=== PATIENT | male | born 1980 | race Caucasian/White ===

== ENCOUNTER 2016-08-28 12:09 | Observation (INO) | payer BC ==
[~2016-08-28] VITALS: Ht 185.4 cm; Wt 76.5 kg
[~2016-08-28 12:09] MED LIST: FENTANYL PF 250 MCG/5ML ONE; MIDAZOLAM 1 MG/ML, 2ML ONE
[2016-08-28] MEDS ORDERED: FLUORESCEIN OPHTHALMIC 1 MG STRIP ONE (12:33)
[2016-08-28] MEDS ORDERED: OXYMETAZOLINE NASAL SPRAY 0.05%, 15ML ONE (12:33)
[2016-08-28] MEDS ORDERED: LIDOCAINE/PF 1%, 30ML ONE (12:34)
[2016-08-28] MEDS ORDERED: BACITRACIN 50,000 UNIT ONE (12:34)
[2016-08-28] MEDS ORDERED: EPINEPHRINE 1 MG/ML, 1ML ONE (12:34)
[2016-08-28] MEDS ORDERED: EPINEPHRINE TOPICAL SOLN 1 MG/ML, 30ML ONE (12:34)
[2016-08-28] MEDS ORDERED: BACITRACIN OINT 500U/GM, 15 GM ONE (12:34)
[2016-08-28 12:49] VITALS: BP 145/89
[2016-08-28] MEDS ORDERED: LIDOCAINE 1%, 2ML ONE (13:02)
[2016-08-28] MEDS ORDERED: TRAZ50TA18 PO (13:18)
[2016-08-28] MEDS ORDERED: MIDAZOLAM 1 MG/ML, 2ML ONE ×2 (13:29→20:07)
[2016-08-28] MEDS ORDERED: FLUO40CA9 PO (13:30)
[2016-08-28] MEDS ORDERED: SUMA50TA4 PO (13:36)
[2016-08-28] MEDS ORDERED: LACTATED RINGERS 1,000 ML IV SCH (13:36)
[2016-08-28] MEDS ORDERED: LIDOCAINE 1%, 2ML SQ PRN (14:00)
[2016-08-28] MEDS ORDERED: ONDANSETRON 2MG/ML, 2ML ONE (14:16)
[2016-08-28] MEDS ORDERED: DEXAMETHASONE 4 MG/ML, 5ML ONE (14:16)
[2016-08-28] MEDS ORDERED: ROCURONIUM 10 MG/ML ONE (14:16)
[2016-08-28] MEDS ORDERED: PROPOFOL 10 MG/ML, 20ML ONE ×2 (14:16)
[2016-08-28] MEDS ORDERED: CEFTRIAXONE 1,000 MG ONE (14:28)
[2016-08-28] MEDS ORDERED: HYDROmorphone 1 MG/ML, 1ML ONE ×2 (14:40→15:43)
[2016-08-28] MEDS ORDERED: FENTANYL PF 250 MCG/5ML ONE (14:50)
[2016-08-28] MEDS ORDERED: ALBUTEROL/IPRATROPIUM 2.5MG/0.5MG, 3 ML NPPB PRN (15:30)
[2016-08-28] MEDS ORDERED: OXYcodone 5 MG/5 ML ORAL.SOL UDC PO PRN (15:30)
[2016-08-28] MEDS ORDERED: MIDAZOLAM 1 MG/ML, 2ML IV PRN (15:30)
[2016-08-28] MEDS ORDERED: NICOTINE 21 MG/24 HR PATCH.TD24 TD ONE (15:30)
[2016-08-28] MEDS ORDERED: METOCLOPRAMIDE 5 MG/ML, 2ML IV PRN (15:30)
[2016-08-28] MEDS ORDERED: ONDANSETRON 2MG/ML, 2ML IVPush PRN ×2 (15:30→22:30)
[2016-08-28] MEDS ORDERED: hydrALAzine 20 MG/ML, 1ML IV PRN (15:30)
[2016-08-28] MEDS ORDERED: PROMETHAZINE 25 MG/ML, 1ML IV PRN (15:30)
[2016-08-28] MEDS ORDERED: MEPERIDINE/PF 25MG/0.5ML IVPush PRN (15:30)
[2016-08-28] MEDS ORDERED: LABETALOL 5MG/ML, 20ML IV PRN (15:30)
[2016-08-28] MEDS ORDERED: ACETAMINOPHEN 325 MG TABLET PO PRN (15:30)
[2016-08-28] MEDS ORDERED: EPINEPHRINE TOPICAL SOLN 1 MG/ML, 30ML TP ONE (17:05)
[2016-08-28] MEDS ORDERED: FENTANYL PF 100 MCG/2ML ONE ×2 (19:33→20:07)
[2016-08-28] MEDS ORDERED: BALANCED SALT OPHTH IRRIG SOLN 18ML ONE (19:33)
[2016-08-28] MEDS ORDERED: HYDROmorphone 2 MG/ML, 1ML ONE (19:47)
[2016-08-28] MEDS: HYDROmorphone 1 MG/ML, 1ML IV PRN ×2 (19:49→20:00)
[2016-08-28] MEDS: FENTANYL PF 100 MCG/2ML IV PRN ×2 (19:55→20:05)
[2016-08-28] MEDS ORDERED: OXYcodone 5 MG/5 ML ORAL.SOL UDC ONE (21:22)
[2016-08-28] MEDS ORDERED: HYDROmorphone 2MG TABLET PO PRN (22:30)
[2016-08-28] MEDS: AMPICILLIN/SULBACTAM 3 GM in SODIUM CHLORIDE 0.9% 100 ML IV SCH (23:57)
[2016-08-28] MEDS: HYDROmorphone 2 MG/ML, 1ML IV PRN (23:57)
[2016-08-28] MEDS: LACTATED RINGERS 1,000 ML IV SCH (23:58)
[2016-08-29 00:31] VITALS: BP 146/99
[2016-08-29] MEDS: HYDROmorphone 2 MG/ML, 1ML IV PRN ×5 (00:38→15:14)
[2016-08-29] MEDS: AMPICILLIN/SULBACTAM 3 GM in SODIUM CHLORIDE 0.9% 100 ML IV SCH ×3 (05:19→18:04)
[2016-08-29 05:21] VITALS: BP 141/82
[2016-08-29 05:31] LABS: ASPARTATE AMINO TRANSFERASE 24 U/L (15-37); BLOOD UREA NITROGEN 13 mg/dL (7-18)
[2016-08-29 07:26] VITALS: BP 128/73
[2016-08-29] MEDS: LACTATED RINGERS 1,000 ML IV SCH ×2 (10:30→23:59)
[2016-08-29 12:59] VITALS: BP 148/77
[2016-08-29] MEDS: OXYcodone/APAP 5/325MG TABLET PO PRN ×2 (18:09→22:19)
[2016-08-29 19:19] VITALS: BP 146/72
[2016-08-29] MEDS: NICOTINE 21 MG/24 HR PATCH.TD24 TD SCH (20:47)
[2016-08-30] MEDS: AMPICILLIN/SULBACTAM 3 GM in SODIUM CHLORIDE 0.9% 100 ML IV SCH ×3 (00:06→11:37)
[2016-08-30] MEDS ORDERED: HYDROmorphone 2MG TABLET PO PRN (01:00)
[2016-08-30] MEDS ORDERED: DIPHENHYDRAMINE 25 MG CAPSULE PO ONE (01:00)
[2016-08-30 02:41] VITALS: BP 126/77
[2016-08-30] MEDS: OXYcodone/APAP 5/325MG TABLET PO PRN ×3 (06:49→15:33)
[2016-08-30 07:53] VITALS: BP 111/70
[2016-08-30] MEDS: NICOTINE 21 MG/24 HR PATCH.TD24 TD SCH (09:08)
[2016-08-30] MEDS: LACTATED RINGERS 1,000 ML IV SCH (09:44)
[2016-08-30] MEDS ORDERED: SULF1TAB24 PO (13:18)
[2016-08-30] MEDS ORDERED: OXYC-302 PO (13:18)
[2016-08-30] MEDS ORDERED: METH5TAB6 PO (13:35)
[2016-08-30 14:17] VITALS: BP 128/91
[2016-08-30 15:34] VITALS: BP 129/86
== END 2016-08-30 16:10 | disposition home or self-care (01) ==
LOC: OUT 12:09 → 4NOR 22:15 → OUT 22:48
PROVIDERS: ADMIT Otolaryngology; ATTEND Family Medicine
DX: J32.1 Chronic frontal sinusitis (principal); D14.0 Benign neoplasm of middle ear, nasal cavity and accessory sinuses; R63.4 Abnormal weight loss; E05.90 Thyrotoxicosis, unspecified without thyrotoxic crisis or storm; F41.9 Anxiety disorder, unspecified; F32.9 Major depressive disorder, single episode, unspecified; F17.200 Nicotine dependence, unspecified, uncomplicated
CPT/HCPCS: 31255; 31276; 36415; 70210; 80053; 81003; 82140; 82607; 82746; 84439; 84443; 84445; 84481; 85025; 86376; 88304; 88311; 88331; 93005; 96365; 96375; 96376; G0378; J0171; J0295; J0696; J1100; J1170; J2250; J2405; J2704; J3010; J3490; J7120; Q0163; C1713